=== PATIENT | male | born 1980 | race Caucasian/White ===

== ENCOUNTER 2024-07-02 19:54 | Emergency (ER) | payer OTHER ==
[~2024-07-02] VITALS: Ht 190.5 cm; Wt 92.0 kg
[2024-07-02 21:47] LABS: STREP A SCREEN NEGATIVE (Neg)
[2024-07-02] MEDS ORDERED: LIDO15SO9 PO (23:20)
[2024-07-02] MEDS: acetaminophen 325mg tablet PO ONE (23:35)
[2024-07-02] MEDS: LIDOcaine 2% Viscous 15ml cup MM ONE (23:36)
[2024-07-02 23:46] VITALS: BP 132/89; PULSE 78; RESP 20; TEMP 99; O2SAT 99
== END 2024-07-02 23:47 | disposition home or self-care (01) ==
LOC: ER 19:55
DX: J02.9 Acute pharyngitis, unspecified (principal); Z20.822 Contact with and (suspected) exposure to COVID-19
CPT/HCPCS: 36415; 71045; 87081; 87502; 87503; 87811; 87880; 99285